=== PATIENT | female | born 1960 | race Caucasian/White ===

== ENCOUNTER 2018-06-26 17:12 | Emergency (ER) | payer SELFPAY ==
[~2018-06-26] VITALS: Ht 152.4 cm; Wt 72.7 kg
[2018-06-26] MEDS ORDERED: BACTROBAN21 EX (18:56)
[2018-06-26] MEDS ORDERED: KEFLEX500 M1 PO (18:56)
[2018-06-26 19:30] VITALS: BP 156/79
== END 2018-06-27 19:30 | disposition home or self-care (01) | DRG 594 ==
LOC: ED 17:12
DX: L98.499 Non-pressure chronic ulcer of skin of other sites with unspecified severity (principal); I10 Essential (primary) hypertension